=== PATIENT | male | born 1965 | race Caucasian/White ===

== ENCOUNTER → 2021-02-01 08:28 | Outpatient (CLI) | payer OTHER, SELFPAY ==
[2021-02-01 09:22] LABS: Add Manual Diff / Slide Review NO; Basophils Absolute Auto 0 /uL (0-100); Basophils Percent Auto 0.5 % (0-2); Eosinophils Absolute Auto 200 /uL (0-450); Eosinophils Percent Auto 2.8 % (2-4); Hematocrit 44.7 % (41-53); Hemoglobin 14.8 g/dL (13.5-17.5); Lymphocytes Absolute Auto 1700 /uL (1100-4500); Lymphocytes Percent Auto 28.6 % (25-40); Mean Corpuscular HGB Conc 33.1 % (30-36); Mean Corpuscular Volume 87.8 fL (80-100); Monocytes Absolute Auto 600 /uL (0-900); Monocytes Percent Auto 9.8 % (3-14); Neutrophils Absolute Auto 3500 /uL (1500-7000); Neutrophils Percent Auto 58.3 % (50-75); Platelet Count 279 X10^3/uL (150-400); Red Cell Distribution Width 12.8 % (11.6-14.8)
[2021-02-01 09:52] LABS: Alanine Aminotransferase 28 IU/L (<50); Albumin 4.2 g/dL (3.5-5.0); Albumin Globulin Ratio 1.4 (1.0-2.8); Alkaline Phosphatase 50 U/L (38-126); Aspartate Aminotransferase 26 IU/L (17-59); BUN Creatinine Ratio 16.1 (6-22); Bilirubin Total 0.4 mg/dL (0.2-1.3); Blood Urea Nitrogen 15 mg/dL (9-20); Calcium 9.5 mg/dL (8.4-10.2); Carbon Dioxide 31 mmol/L (22-32); Chloride 104 mmol/L (98-107); Cholesterol 240 mg/dL (140-199); Estimated Glomerular Filt Rate > 60.0 mL/min (>60); Globulin 2.9 g/dL (1.7-4.1); Glucose 115 mg/dL (70-100); HDL Cholesterol 48 mg/dL (40-60); HEMOLYSIS < 15 (0-50); LDL Cholesterol Calculated 163 mg/dL (<100); Potassium 3.6 mmol/L (3.4-5.1); Sodium 140 mmol/L (137-145); Total Protein 7.1 g/dL (6.3-8.2); Triglycerides 143 mg/dL (35-150)
[2021-02-01 10:17] LABS: TSH w/ Reflex to FT4 0.79 uIU/mL (0.47-4.68)
[2021-02-01 10:18] LABS: Prostate Specific Antigen Scrn 0.776 ng/mL (0.1-4.0)
== END ==
PROVIDERS: PCP Family Medicine; Referring Provider Family Medicine; Visit Provider Family Medicine
DX: Z12.5 Encounter for screening for malignant neoplasm of prostate (principal); Z13.1 Encounter for screening for diabetes mellitus; Z13.220 Encounter for screening for lipoid disorders
CPT/HCPCS: 36415; 80053; 80061; 84443; 85025; G0103

== ENCOUNTER → 2022-03-21 08:52 | Outpatient (CLI) | payer OTHER, SELFPAY ==
[2022-03-21 10:12] LABS: Add Manual Diff / Slide Review NO; Basophils Absolute Auto 0 /uL (0-100); Basophils Percent Auto 0.6 % (0-2); Eosinophils Absolute Auto 100 /uL (0-450); Eosinophils Percent Auto 1.9 % (2-4); Hematocrit 42.4 % (41-53); Hemoglobin 14.5 g/dL (13.5-17.5); Lymphocytes Absolute Auto 1600 /uL (1100-4500); Lymphocytes Percent Auto 31.2 % (25-40); Mean Corpuscular HGB Conc 34.2 % (30-36); Mean Corpuscular Hemoglobin 29.8 PG (26-34); Mean Corpuscular Volume 87.1 fL (80-100); Monocytes Absolute Auto 300 /uL (0-900); Monocytes Percent Auto 6.8 % (3-14); Neutrophils Absolute Auto 3000 /uL (1500-7000); Neutrophils Percent Auto 59.5 % (50-75); Platelet Count 272 X10^3/uL (150-400); Red Blood Cell Count 4.87 X10^6/uL (4.5-5.9)
[2022-03-21 10:44] LABS: Alanine Aminotransferase 23 IU/L (<50); Albumin 4.3 g/dL (3.5-5.0); Albumin Globulin Ratio 1.7 (1.0-2.8); Alkaline Phosphatase 48 U/L (38-126); Aspartate Aminotransferase 22 IU/L (17-59); BUN Creatinine Ratio 11.1 (6-22); Bilirubin Total 0.7 mg/dL (0.2-1.3); Blood Urea Nitrogen 12 mg/dL (9-20); Calcium 9.3 mg/dL (8.4-10.2); Carbon Dioxide 27 mmol/L (22-32); Chloride 104 mmol/L (98-107); Cholesterol 200 mg/dL (140-199); Estimated Glomerular Filt Rate > 60 mL/min (>60); Globulin 2.6 g/dL (1.7-4.1); Glucose 108 mg/dL (70-100); HDL Cholesterol 46 mg/dL (40-60); HEMOLYSIS < 15 (0-50); LDL Cholesterol Calculated 133 mg/dL (<100); Potassium 4.5 mmol/L (3.4-5.1); Sodium 141 mmol/L (137-145); Total Protein 6.9 g/dL (6.3-8.2); Triglycerides 106 mg/dL (35-150)
[2022-03-21 10:59] LABS: TSH w/ Reflex to FT4 0.72 uIU/mL (0.47-4.68)
== END ==
PROVIDERS: PCP Family Medicine; Referring Provider Family Medicine; Visit Provider Family Medicine
DX: E78.5 Hyperlipidemia, unspecified (principal)
CPT/HCPCS: 36415; 80053; 80061; 84443; 85025

== ENCOUNTER → 2022-04-11 08:56 | Outpatient (CLI) | payer OTHER, SELFPAY ==
--- NOTE | 2022-04-11 09:10 | DI.MRI.S_ITS ---
PROCEDURE: MR ANGIO HEAD WO CON INDICATIONS: worsening migraine, intensity frequency TECHNIQUE: Noncontrast axial 3-D [id number] MR angiogram, with 3-dimensional maximum intensity projection (MIP) reformats of the internal carotid arteries and posterior circulation then performed. COMPARISON: None. FINDINGS: Image quality: Excellent. Anterior circulation: Intracranial internal carotid arteries demonstrate normal size and intraluminal flow signal. There is a hypoplastic right A1 segment, with a corresponding robust left A1 segment. This is considered to be a normal developmental variant of the t[place] of [place], of typically no clinical consequence. The flow within the paired anterior cerebral arteries is otherwise normal and symmetric. The flow within the middle cerebral arteries is normal and symmetric. The anterior communicating artery is seen. No stenoses, occlusions, or aneurysms. Posterior circulation: Visualized portions of the vertebral arteries demonstrate normal caliber, and join to form a normal appearing basilar artery. There is a prominent right posterior communicating artery seen, with an accompanying diminutive right P1 segment. This is attributed to a type origin of the right posterior cerebral artery, which is considered to be a normal developmental variant of typically no clinical consequence. The flow within the posterior cerebral arteries is normal and symmetric. No stenoses, occlusions, or aneurysms. IMPRESSION: A cause of headache is not seen. No significant intracranial arterial abnormality is seen. No aneurysm can be seen. [id number] developmental anomalies are incidentally noted. Dictated by: Shane Whittington M.D. on 04/11/2022 at 8:40 Approved by: Shane Whittington M.D. on 04/11/2022 at 8:42
== END ==
PROVIDERS: PCP Family Medicine; Referring Provider Family Medicine; Visit Provider Family Medicine
DX: G43.109 Migraine with aura, not intractable, without status migrainosus (principal)
CPT/HCPCS: 70544

== ENCOUNTER → 2023-04-17 06:53 | Outpatient (CLI) | payer OTHER, SELFPAY ==
[2023-04-17 08:11] LABS: Add Manual Diff / Slide Review NO; Basophils Absolute Auto 100 /uL (0-100); Basophils Percent Auto 0.9 % (0-2); Eosinophils Absolute Auto 200 /uL (0-450); Eosinophils Percent Auto 3.9 % (2-4); Hematocrit 44.2 % (41-53); Hemoglobin 15.2 g/dL (13.5-17.5); Lymphocytes Absolute Auto 2000 /uL (1100-4500); Lymphocytes Percent Auto 31.9 % (25-40); Mean Corpuscular HGB Conc 34.4 % (30-36); Mean Corpuscular Hemoglobin 29.9 PG (26-34); Mean Corpuscular Volume 86.9 fL (80-100); Monocytes Absolute Auto 500 /uL (0-900); Monocytes Percent Auto 8.1 % (3-14); Neutrophils Absolute Auto 3500 /uL (1500-7000); Neutrophils Percent Auto 55.2 % (50-75); Platelet Count 279 X10^3/uL (150-400); Red Blood Cell Count 5.08 X10^6/uL (4.5-5.9); Red Cell Distribution Width 12.7 % (11.6-14.8); White Blood Cell Count 6.4 X10^3/uL (4.5-11.0)
[2023-04-17 08:34] LABS: Alanine Aminotransferase 24 IU/L (<50); Albumin 4.4 g/dL (3.5-5.0); Albumin Globulin Ratio 1.5 (1.0-2.8); Alkaline Phosphatase 47 U/L (38-126); Aspartate Aminotransferase 23 IU/L (17-59); BUN Creatinine Ratio 16.5 (6-22); Bilirubin Total 0.8 mg/dL (0.2-1.3); Blood Urea Nitrogen 19 mg/dL (9-20); Carbon Dioxide 29 mmol/L (22-32); Chloride 103 mmol/L (98-107); Cholesterol 244 mg/dL (140-199); Estimated Glomerular Filt Rate > 60 mL/min (>60); Globulin 2.9 g/dL (1.7-4.1); Glucose 122 mg/dL (70-100); HDL Cholesterol 46 mg/dL (40-60); HEMOLYSIS < 15 (0-50); LDL Cholesterol Calculated 176 mg/dL (<100); Potassium 4.8 mmol/L (3.4-5.1); Sodium 139 mmol/L (137-145); Total Protein 7.3 g/dL (6.3-8.2); Triglycerides 111 mg/dL (35-150)
[2023-04-17 09:02] LABS: TSH w/ Reflex to FT4 1.28 uIU/mL (0.47-4.68)
[2023-04-17 09:03] LABS: Prostate Specific Antigen 1.09 ng/mL (0.10-4.00)
== END ==
PROVIDERS: PCP Family Medicine; Referring Provider Family Medicine; Visit Provider Family Medicine
DX: Z13.9 Encounter for screening, unspecified (principal)
CPT/HCPCS: 36415; 80053; 80061; 84153; 84443; 85025

== ENCOUNTER → 2024-04-15 07:06 | Outpatient (CLI) | payer OTHER, SELFPAY ==
[2024-04-15 07:44] LABS: Add Manual Diff / Slide Review NO; Basophils Absolute Auto 0 /uL (0-100); Basophils Percent Auto 0.7 % (0-2); Eosinophils Absolute Auto 100 /uL (0-450); Eosinophils Percent Auto 2.1 % (2-4); Hematocrit 43.7 % (41-53); Hemoglobin 15.1 g/dL (13.5-17.5); Lymphocytes Absolute Auto 1800 /uL (1100-4500); Lymphocytes Percent Auto 30.2 % (25-40); Mean Corpuscular HGB Conc 34.5 % (30-36); Mean Corpuscular Hemoglobin 30.1 PG (26-34); Mean Corpuscular Volume 87.3 fL (80-100); Monocytes Absolute Auto 400 /uL (0-900); Neutrophils Absolute Auto 3600 /uL (1500-7000); Platelet Count 285 X10^3/uL (150-400); Red Blood Cell Count 5.01 X10^6/uL (4.5-5.9); White Blood Cell Count 6.1 X10^3/uL (4.5-11.0)
[2024-04-15 08:07] LABS: Alanine Aminotransferase 27 IU/L (<50); Albumin 4.3 g/dL (3.5-5.0); Albumin Globulin Ratio 1.9 (1.0-2.8); Alkaline Phosphatase 48 U/L (38-126); Aspartate Aminotransferase 28 IU/L (17-59); BUN Creatinine Ratio 12.3 (6-22); Bilirubin Total 0.9 mg/dL (0.2-1.3); Blood Urea Nitrogen 13 mg/dL (9-20); Calcium 9.8 mg/dL (8.4-10.2); Carbon Dioxide 29 mmol/L (22-32); Chloride 104 mmol/L (98-107); Cholesterol 195 mg/dL (140-199); Estimated Glomerular Filt Rate > 60 mL/min (>60); Globulin 2.3 g/dL (1.7-4.1); Glucose 110 mg/dL (70-100); HDL Cholesterol 56 mg/dL (40-60); HEMOLYSIS < 15 (0-50); LDL Cholesterol Calculated 120 mg/dL (<100); Sodium 139 mmol/L (137-145); Total Protein 6.6 g/dL (6.3-8.2); Triglycerides 95 mg/dL (35-150)
[2024-04-15 08:38] LABS: Prostate Specific Antigen Scrn 1.27 ng/mL (0.1-4.0)
[2024-04-15 08:43] LABS: TSH w/ Reflex to FT4 0.98 uIU/mL (0.47-4.68)
[2024-04-15 09:51] LABS: Hemoglobin A1C% w Est Avg Glu 5.6 % (4.0-6.0)
== END ==
PROVIDERS: PCP Family Medicine; Referring Provider Family Medicine; Visit Provider Family Medicine
DX: Z13.9 Encounter for screening, unspecified (principal); Z12.5 Encounter for screening for malignant neoplasm of prostate; E78.2 Mixed hyperlipidemia; R73.01 Impaired fasting glucose
CPT/HCPCS: 36415; 80053; 80061; 83036; 84443; 85025; G0103

== ENCOUNTER → 2024-06-12 15:57 | Outpatient (CLI) | payer OTHER, SELFPAY ==
--- NOTE | 2024-06-12 15:59 | DI.RAD.S_ITS ---
PROCEDURE: XR LUMBAR SPINE MIN 4V INDICATIONS: Pain left SI joint x one year TECHNIQUE: 5 views of the lumbar spine were acquired, including bilateral oblique views. COMPARISON: None. FINDINGS: Bones: 5 nonrib-bearing vertebrae are present. There is normal bony alignment. No vertebral body compression fractures. No suspicious bony lesions. Macro lumbar degenerate Soft tissues: Overlying bowel gas pattern is normal. No suspicious soft tissue calcifications. Oblique images: No definite pars defects. IMPRESSION: Multilevel degenerative changes of the lumbar spine. Dictated by: Ariel Garcia M.D. on 06/13/2024 at 16:00 Approved by: Ariel Garcia M.D. on 06/13/2024 at 16:01
--- NOTE | 2024-06-12 15:59 | DI.RAD.S_ITS ---
PROCEDURE: XR CERVICAL SPINE 4V OR 5V INDICATIONS: Pain cervical spine x 6 months TECHNIQUE: 5 views of the cervical spine acquired. COMPARISON: None. FINDINGS: Bones: No fractures or dislocations to the C7 level. Oblique images demonstrate at least mild multilevel bony foraminal stenoses. There are multilevel degenerative changes of the cervical spine with facet and uncovertebral arthropathy, disc height loss with degenerative endplate changes and spurring. This is most pronounced at C5-C6. Soft tissues: No prevertebral soft tissue swelling. IMPRESSION: Multilevel degenerative changes of the cervical spine, most pronounced at C5-C6. Dictated by: Ariel Garcia M.D. on 06/13/2024 at 15:59 Approved by: Ariel Garcia M.D. on 06/13/2024 at 16:00
== END ==
PROVIDERS: PCP Family Medicine; Referring Provider Physician Assistant; Visit Provider Physician Assistant
DX: M46.1 Sacroiliitis, not elsewhere classified (principal); M47.812 Spondylosis without myelopathy or radiculopathy, cervical region; M47.816 Spondylosis without myelopathy or radiculopathy, lumbar region; M54.2 Cervicalgia
CPT/HCPCS: 72050; 72110

== ENCOUNTER 2025-02-28 10:40 | Day surgery (SDC) | payer OTHER, SELFPAY ==
--- NOTE | 2025-02-28 | PATH_ITS ---
[facility] Accession Number: [id number] No. of containers..01 Tissue . 01 Material submitted: . colon - SIGMOID POLYPS . 01 Diagnosis: SIGMOID COLON POLYPS: Vegetable material. No colonic tissue identified. MRV 03/14/2025 1326 Local . 01 Electronically signed: . Tl Elena MD, PhD, Pathologist NPI- [id number] . 01 Gross description: . Received is one formalin-filled container labeled with the patient's name and labeled sigmoid polyps, are multiple fragments of otero, soft tissue and/or debris which range in size from less than 0.1 cm to 0.3 x 0.2 x 0.2 cm. All fragments are totally submitted in cassette A1. ([id number]) /[place] 03/10/20254 Local . 01 Pathologist provided ICD-10: K63.5 . 01 CPT . 243199 Specimen Comment: A courtesy copy of this report has been sent to [phone] Performed at: [address] [id number] MD Anthony Cox MD Phone: [phone]
[2025-02-28 10:57] VITALS: BP 163/97; PULSE 120; RESP 16; TEMP 36.7; O2SAT 96
[2025-02-28] MEDS: LACTATED RINGERS 1,000 ML 42 ML IV ×2 (11:07→12:08)
--- NOTE | 2025-02-28 12:06 | P.HP_ITS ---
History of Present Illness History of Present Illness Date Patient Seen: 02/28/25 Time Patient Seen: 12:06 Chief complaint: Colonoscopy Narrative: Donovan is a 59-year-old man here for colonoscopy. His last was about 5 years ago. No family history of colon cancer. [facility] Medical History (Updated 02/28/25 @ 12:06 by Saul Stearns MD) Encounter for annual physical exam Psoriasis (~2016) Skin cancer (~2019) Family History (Updated 09/15/18 @ 21:31 by Tanvi Motta) Father History of heart disease Hyperlipidemia Mother Stroke Brother Bacterial meningitis Grandfather History of emphysema Grandmother Diabetes mellitus Social History marital status: Smoking Status: Never smoker alcohol intake: current substance use type: does not use Meds Home Medications and Allergies Home Medications ?Medication ?Instructions ?Recorded ?Confirmed ?Type aluminum chloride 20 % topical 1 applic topical BEDTIM E #60 mL 12/14/20 06/12/24 Rx solution (Drysol Dab-O-Matic) atorvastatin 20 mg tablet (Lipitor) 20 mg PO DAILY #90 tabs 03/25/24 06/12/24 Rx diclofenac sodium 1 % topical gel 2 g topical QID #100 grams 04/23/24 06/12/24 Rx Allergies Allergy/AdvReac Type Severity Reaction Status Date / Time No Known Drug Allergies Allergy Verified 02/28/25 10:51 Exam Vital Signs (past 8 hours): - 02/28/25 10:57 Temperature 98.1 F Pulse Rate 120 H Respiratory Rate 16 Blood Pressure 163/97 H Pulse Oximetry 96 Oxygen Delivery Method Room Air Oxygen Delivery Method Room Air Const General: healthy appearing Assessment & Plan Assessment and plan (1) Colon cancer screening: Status: Acute Plan Colonoscopy Time-Based Coding :: [TOTAL MINUTES] spent with patient and on the chart (including review of chart, obtaining history, exam, reviewing outside data, placing orders, documenting exam and treatment plan, and counseling patient) on [DATE]. PROFEE [employer] Specialist Document charge(s): No
--- NOTE | 2025-02-28 12:09 | SUR.PREOP ---
On arrival, pt HR 116-120, remained elevated despite pt resting/taking deep breaths. ST on 3 lead bedside EKG. D/W Abby VAZQUEZ who requests IVF to be fully opened. Pt bolused one liter LR, HR now 102, pt assisted to bathroom prior to endoscopy and new IVF hung, HR to be monitored closely.
--- NOTE | 2025-02-28 12:35 | P.OP.COLON_ITS ---
Operative Date/Time/Diagnoses Date of procedure: 02/28/25 Time of procedure: 12:35 Pre-op diagnosis: Colon cancer screening Post-op diagnosis: same Procedure & Clinicians Study performed: Colonoscopy Same procedure(s) as scheduled: Yes Surgeon: Saul Stearns Anesthesia Type: MAC +/- Procedure Notes Procedure in detail: Surgeon: Saul Stearns MD Anesthesia: Abby Erma [employer] MANAGER Procedure: The patient was brought to the endoscopy suite, placed in left lateral decubitus position. The patient was connected to monitoring devices. A time-out was performed. Sedation was administered. Once the patient was adequately sedated, a digital rectal exam was performed and was normal. The scope was then inserted and advanced to the cecum where the appendiceal orifice was identified and photographed. The scope was then slowly withdrawn over greater than 6 minutes. The mucosa was thoroughly inspected. Two small polyps were removed from descending colon with the cold snare. The scope was retroflexed in the rectum. No other abnormalities were found. The scope was straightened and removed. The patient was awakened and brought to recovery. Scope withdrawal time: 12 minutes Sedation time: 19 minutes EBL: 2 mL Findings: Two small polyps in the sigmoid colon Post-procedure Disposition: PACU
[2025-02-28 12:38] VITALS: BP 123/74; PULSE 84; RESP 16; TEMP 36.2; O2SAT 95
[2025-02-28 12:43] VITALS: BP 109/63; PULSE 84; RESP 16; O2SAT 98
[2025-02-28 12:48] VITALS: BP 118/72; PULSE 80; RESP 16; TEMP 36.2; O2SAT 97
== END 2025-02-28 12:58 | disposition home or self-care (01) ==
PROVIDERS: PCP Family Medicine; Referring Provider Surgery; Visit Provider Surgery
PROC: 0DJD8ZZ Inspection of Lower Intestinal Tract, Via Natural or Artificial Opening Endoscopic (ICD-10-PCS; CPT 45378; principal; 2025-02-28 12:30)
DX: Z12.11 Encounter for screening for malignant neoplasm of colon (principal); K63.5 Polyp of colon
CPT/HCPCS: 45385; J2704; J7120

== ENCOUNTER → 2025-03-31 09:15 | Outpatient (CLI) | payer OTHER, SELFPAY ==
[2025-03-31 09:38] LABS: Add Manual Diff / Slide Review NO; Hematocrit 43.9 % (41-53); Hemoglobin 14.8 g/dL (13.5-17.5); Lymphocytes Absolute Auto 1400 /uL (1100-4500); Mean Corpuscular HGB Conc 33.7 % (30-36); Mean Corpuscular Hemoglobin 29.5 PG (26-34); Mean Corpuscular Volume 87.5 fL (80-100); Platelet Count 276 X10^3/uL (150-400)
[2025-03-31 10:54] LABS: Hemoglobin A1C% w Est Avg Glu 5.6 % (4.0-6.0)
[2025-03-31 11:03] LABS: Alanine Aminotransferase 30 IU/L (<50); Albumin 4.4 g/dL (3.5-5.0); Albumin Globulin Ratio 1.8 (1.0-2.8); Alkaline Phosphatase 53 U/L (38-126); Blood Urea Nitrogen 15 mg/dL (9-20); Calcium 9.6 mg/dL (8.4-10.2); Carbon Dioxide 26 mmol/L (22-32); Chloride 106 mmol/L (98-107); Cholesterol 192 mg/dL (140-199); Estimated Glomerular Filt Rate > 60 mL/min (>60); Globulin 2.5 g/dL (1.7-4.1); Glucose 115 mg/dL (70-99); HDL Cholesterol 50 mg/dL (40-60); HEMOLYSIS < 15 (0-50); Potassium 4.1 mmol/L (3.4-5.1); Sodium 141 mmol/L (137-145); Total Protein 6.9 g/dL (6.3-8.2); Triglycerides 111 mg/dL (35-150)
[2025-03-31 11:28] LABS: TSH w/ Reflex to FT4 1.15 uIU/mL (0.47-4.68)
[2025-03-31 11:29] LABS: Prostate Specific Antigen 1.02 ng/mL (0.10-4.00)
== END ==
PROVIDERS: PCP Family Medicine; Referring Provider Family Medicine; Visit Provider Family Medicine
DX: E78.2 Mixed hyperlipidemia (principal); R73.01 Impaired fasting glucose; Z12.5 Encounter for screening for malignant neoplasm of prostate
CPT/HCPCS: 36415; 80053; 80061; 83036; 84153; 84443; 85025

== ENCOUNTER → 2025-04-14 08:11 | Outpatient (CLI) | payer OTHER, SELFPAY ==
--- NOTE | 2025-04-14 08:12 | DI.NM.S_ITS ---
PROCEDURE: NM EXERCISE TREADMILL NON NUC COMPARISON: None. INDICATIONS: Exertional chest pain. FINDINGS: Rest ECG sinus rhythm 86 bpm. Charli protocol 10:36, maximum heart rate 144 bpm (90% peak predicted), peak blood pressure 200/100, 11.3 METS, CARMEN -20%. Exercise ECG sinus tachycardia, 1.5 to [address] segment depressions leads I, II, III, aVF, V4-V6. The patient reported 0.5 out of 10 chest discomfort 7 minutes into exercise that increased to 1 out of 10 chest discomfort at the 10-minute priscilla. IMPRESSION: Abnormal study. The exercise ECG is consistent with inducible ischemia. The patient reported exercise-induced chest discomfort. Normal hemodynamic response. Good exercise capacity. Result discussed with nurse Gómez at the ordering physician's office. Dictated by: Argelia Valdes D.O. on 04/14/2025 at 13:00 Approved by: Argelia Valdes D.O. on 04/14/2025 at 13:12
== END ==
LOC: NUCM 08:12
PROVIDERS: PCP Family Medicine; Referring Provider Family Medicine; Visit Provider Family Medicine
DX: R07.9 Chest pain, unspecified (principal); R94.39 Abnormal result of other cardiovascular function study
CPT/HCPCS: 93017

== ENCOUNTER → 2025-05-05 07:47 | Outpatient (CLI) | payer OTHER, SELFPAY ==
--- NOTE | 2025-05-05 07:48 | DI.NM.S_ITS ---
PROCEDURE: NM JL PERF SPECT REST & STR Rest and exercise myocardial perfusion SPECT with gated imaging and ejection fraction RADIOPHARMACEUTICAL: 12.4 mCi Tc-99m sestamibi IV at rest and 26.8 mCi Tc-99m sestamibi IV at peak exercise. A one day-protocol was performed. INDICATIONS: inducible ischemia TECHNIQUE: Radiopharmaceutical was injected at peak stress test, and also at rest. SPECT images were obtained. SPECT myocardial perfusion images were displayed in short axis, horizontal long axis, and vertical long axis views. Gated images were reviewed using Sensulin software. COMPARISON: None. CARDIAC STRESS: A standard Charli treadmill exercise tolerance test was performed by the patient under the supervision of an attending staff. The patient exercised for 6 minutes and 44 seconds; functional aerobic impairment (CARMEN) is +9%. Hemodynamic data: There is normal blood pressure and heart rate response to exercise stress. Patient achieved 94% of maximum predicted heart rate at peak exercise. Symptoms: Patient had 2/10 chest pain during peak exercise. EKG: Mild horizontal ST depressions in the anterolateral and inferior leads during exercise and early recovery. Occasional PVCs present. FINDINGS: Raw data: There is good myocardial labeling by radiotracer. No significant motion artifacts. Left ventricle function: Gated images demonstrate normal left ventricle wall thickening. No segmental wall motion abnormality. No transient ischemic dilation; TID is 1.22 (normal less than 1.3). The left ventricle resting end-diastolic volume is 83 mL. Left ventricle stress ejection fraction is 73%; normal values are above 45%. Myocardial perfusion: There is a severely intense reversible defect in the distal anterior wall extending to the entire apical cap suggesting ischemia in the LAD territory. SSS 17, SRS 0. IMPRESSION: Abnormal treadmill nuclear stress test from inducible ischemia standpoint. 1) There is a severely intense reversible defect in the distal anterior wall extending to the entire apical cap suggesting ischemia in the LAD territory. SSS 17, SRS 0. 2) Normal left ventricular size, wall motion, and systolic function (EF post stress 73%). 3) Patient had 2/10 chest pain during peak exercise. 4) Mild horizontal ST depressions in the anterolateral and inferior leads during exercise and early recovery 5) Fair exercise capacity (10.1METs, CARMEN +9%). Target heart rate reached. Appropriate BP response to exercise. 6) Compared to the nuc stress test done 04/22/2013, perfusion defects described above are new on this study. Dictated by: Jose Tovar MD on 05/05/2025 at 15:35 Approved by: Jose Tovar MD on 05/05/2025 at 15:40
== END ==
LOC: NUCM 07:47
PROVIDERS: PCP Family Medicine; Referring Provider Family Medicine; Visit Provider Family Medicine
DX: R07.9 Chest pain, unspecified (principal); R94.39 Abnormal result of other cardiovascular function study
CPT/HCPCS: 78452; 93017; A9502